=== PATIENT | female | born 1985 | race Caucasian/White ===

== ENCOUNTER → 2017-08-18 | Outpatient (CLI) | payer MEDICAID | LOC: FIMAGING 14:37 | PROVIDERS: ATTEND Advanced Practice Midwife | DX: O30.041 Twin pregnancy, dichorionic/diamniotic, first trimester (principal); O26.01 Excessive weight gain in pregnancy, first trimester; O99.341 Other mental disorders complicating pregnancy, first trimester; F31.9 Bipolar disorder, unspecified; Z20.828 Contact with and (suspected) exposure to other viral communicable diseases; Z82.49 Family history of ischemic heart disease and other diseases of the circulatory system ==